=== PATIENT | female | born 1975 | race Caucasian/White ===

== ENCOUNTER 2021-01-23 22:25 | Emergency (ER) | payer MEDICAID, OTHER ==
--- NOTE | 2021-01-23 23:12 | EDM.PDOC ---
ED HPI GENERAL MEDICAL PROBLEM - General Chief Complaint: Back Pain or Injury Stated Complaint: BACK PAIN Time Seen by Provider: 01/23/21 23:29 Source of Information: Reports: Patient, Family History Limitations: Reports: No Limitations - History of Present Illness INITIAL COMMENTS - FREE TEXT/NARRATIVE: pt has been doing yard work and she is now experiencing severe lower back pain . She is not having pain radiating down her legs. She has not had a long history of severe pain. Onset: Gradual Duration: Day(s):, Other (pt is having alot of pain when she gets up and down. ) Location: Reports: Back Associated Symptoms: Reports: No Other Symptoms Left Lower Back Pain Score (Numeric/FACES): 8 - Related Data Allergies Allergy/AdvReac Type Severity Reaction Status Date / Time No Known Allergies Allergy Verified 01/23/21 23:10 Home Meds: Home Meds Escitalopram [Lexapro] 30 mg PO DAILY 03/28/15 [History] Fluticasone Propionate [Flonase] 2 sprays NAKUL ASDIRECTED PRN 03/28/15 [History] Acetaminophen [Tylenol] 650 mg PO Q4H PRN #100 cup 04/02/15 [Rx] Albuterol/Ipratropium [DuoNeb 3.0-0.5 MG/3 ML] 3 ml NEB QIDRT #90 neb 04/02/15 [Rx] Past Medical History - Past Surgical History Other Musculoskeletal Surgeries/Procedures:: born with displaced hip ED ROS GENERAL - Review of Systems Review Of Systems: See Below Constitutional: Reports: No Symptoms HEENT: Reports: No Symptoms Respiratory: Reports: No Symptoms Cardiovascular: Reports: No Symptoms Endocrine: Reports: No Symptoms GI/Abdominal: Reports: No Symptoms Musculoskeletal: Reports: Other (pain in the lower back. ) Skin: Reports: No Symptoms Neurological: Reports: No Symptoms Psychiatric: Reports: No Symptoms ED EXAM,LOWER BACK PAIN/INJURY - Physical Exam Exam: See Below Text/Narrative:: pt arrived with pain in the lower back. She has been doing alot of physical activity with cleaning up there beach. Exam Limited By: No Limitations General Appearance: Alert, Anxious, Moderate Distress Ears: Normal TMs Nose: Normal Inspection Throat/Mouth: Normal Inspection Head: Atraumatic Neck: Normal Inspection Respiratory/Chest: No Respiratory Distress Cardiovascular: Regular Rate, Rhythm GI/Abdominal: Soft, Non-Tender (Female) Exam: Deferred Rectal (Female) Exam: Deferred Back Exam: Other (pt has a neg straight leg raising. She has normal strength. . she is having pain accross her back. ) Extremities: Normal Inspection Neurological: Alert Course - Vital Signs Last Recorded V/S: Last Vital Signs Temp 36.3 C 01/23/21 23:08 Pulse 74 01/23/21 23:08 Resp 16 01/23/21 23:08 BP 125/80 01/23/21 23:08 Pulse Ox 97 01/23/21 23:08 - Orders/Labs/Meds Orders: Active Orders 24 hr Category Date Time Status Lumbar Spine Min 4V [CR] Stat Exams 01/23/21 23:28 Taken Meds: Medications Discontinued Medications Generic Name Dose Route Start Last Admin Trade Name Freq PRN Reason Stop Dose Admin Baclofen Confirm 01/23/21 23:40 01/23/21 23:57 Baclofen 10 Mg Tab Administered 01/23/21 23:41 Not Given Dose 10 mg .ROUTE .STK-MED ONE Baclofen 10 mg 01/23/21 23:47 01/23/21 23:57 Baclofen 10 Mg Tab PO 01/23/21 23:48 10 mg ONETIME ONE Administration Ketorolac Tromethamine 60 mg 01/23/21 23:25 01/23/21 23:56 Ketorolac 30 Mg/Ml Sdv IM 01/23/21 23:26 60 mg ONETIME ONE Administration Oxycodone/Acetaminophen 1 tab 01/23/21 23:34 01/23/21 23:56 Acetaminophen/Oxycodone 325-5 Mg Tab PO 01/23/21 23:35 1 tab ONETIME ONE Administration - Re-Assessments/Exams Free Text/Narrative Re-Assessment/Exam: 01/24/21 00:36 xrays were obtained of the lumbar spine which showed good alignment, interspaces looked wide open, Pt was given torodol 60mg im, percocet 5/325 and baclofen 10mg . pt is feeling much better. Departure - Departure Time of Disposition: 00:38 Disposition: Home, Self-Care 01 Condition: Fair Clinical Impression: Lumbar back sprain - Discharge Information Referrals: PCP,None [Primary Care Provider] - Forms: ED Department Discharge Care Plan Goals: moist warm heat to the lumbar area, followed by a ice pack. baclofen 10 mg q6h prn for muscle spasm norco 5/325 q6h #6, torodol 10 mg q6h prn for pain for the next 5 days. Sepsis Event Note (ED) - Focused Exam Vital Signs: Vital Signs Temp Pulse Resp BP Pulse Ox 01/23/21 23:08 36.3 C 74 16 125/80 97 - My Orders Last 24 Hours: My Active Orders 01/23/21 23:28 Lumbar Spine Min 4V [CR] Stat - Assessment/Plan Last 24 Hours: My Active Orders 01/23/21 23:28 Lumbar Spine Min 4V [CR] Stat
[2021-01-23] MEDS ORDERED: Ketorolac 30 MG/ML SDV IM ONE (23:25)
[2021-01-23 23:33] VITALS: BP 125/80; PULSE 74
[2021-01-23] MEDS ORDERED: Acetaminophen/oxyCODONE 325-5 MG Tab PO ONE (23:34)
[2021-01-23] MEDS ORDERED: Baclofen 10 MG Tab ONE (23:40)
[2021-01-23] MEDS ORDERED: Baclofen 10 MG Tab PO ONE (23:47)
[2021-01-24] MEDS ORDERED: Baclofen 10 MG Tab PO SCH (09:00)
--- NOTE | 2021-01-24 09:04 | CR ---
Lumbar Spine Min 4V CLINICAL HISTORY: Low back pain FINDINGS: The vertebral body heights are maintained. Disc space heights and alignment are maintained. There is mild diffuse spondylosis. There is some osteoarthritis in the L5-S1 facets IMPRESSION: Mild spondylosis Osteoarthritis in the L5-S1 facets No fracture or subluxation
== END 2021-01-24 00:58 | disposition home or self-care (01) ==
LOC: JP.ED 22:25
DX: S33.5XXA Sprain of ligaments of lumbar spine, initial encounter (principal); X58.XXXA Exposure to other specified factors, initial encounter
CPT/HCPCS: 72110; 96372; 99283; A9270; J1885